=== PATIENT | male | born 1940 | race Caucasian/White ===

== ENCOUNTER 2022-01-26 14:02 | Emergency (ER) | payer MEDICARE, MEDICAID ==
[~2022-01-26] VITALS: Ht 167.6 cm; Wt 81.8 kg
[2022-01-26 15:19] LABS: BASOPHILS % (AUTO) 0.3 % (0.0-2.0); EOSINOPHILS % (AUTO) 2.6 % (1.0-6.0); HEMATOCRIT 30.8 % (41-53); HEMOGLOBIN 10.4 g/dL (13.5-17.5); LYMPHOCYTES # (AUTO) 1.3 K/uL (1.0-4.8); MEAN CORPUSCULAR HEMOGLOBIN 32.1 pg (26.0-34.0); MEAN CORPUSCULAR HGB CONC 33.8 G/dL (31.0-37.0); MEAN CORPUSCULAR VOLUME 95 fL (80-100); MONOCYTES # (AUTO) 0.4 K/uL (0.1-1.0); MONOCYTES % (AUTO) 7.8 % (2.0-9.0); NEUTROPHILS % (AUTO) 62.3 % (40.0-70.0); PLATELET COUNT (AUTO) 122 K/uL (150-450); RED BLOOD CELL COUNT(AUTO) 3.25 MIL/uL (4.50-5.90); RED CELL DISTRIBUTION WIDTH 14.9 % (11.5-14.5)
[2022-01-26 15:27] LABS: CREATININE 1.28 mg/dL (0.60-1.30); MAGNESIUM 1.6 mg/dL (1.80-2.40); POTASSIUM 4.9 mmol/L (3.5-5.1)
[2022-01-26 16:55] VITALS: BP 149/70
== END 2022-01-26 17:25 | disposition home or self-care (01) ==
LOC: EMS 14:06
DX: R42 Dizziness and giddiness (principal); E11.65 Type 2 diabetes mellitus with hyperglycemia; I10 Essential (primary) hypertension; Z96.89 Presence of other specified functional implants
CPT/HCPCS: 71045; 80048; 83735; 84484; 85025; 93005; 99283; 36415-L1; 36415-TC

== ENCOUNTER → 2022-10-11 | Outpatient (CLI) | payer MEDICARE, MEDICAID ==
[~2022-10-11] VITALS: Ht 165.1 cm; Wt 59.5 kg
[~2022-10-11] MED LIST: ACET-2247 PO; APIX2.5T PO; ASPI-1450 PO; BENA40TA92 PO; CHOL200059 PO; DOCU-385 PO; LEVE500T20 PO; METF-81 PO; METO25 PO; MIRT-149 PO; POLY15DR16 OU; SIMV-260 PO; TAMS-13 PO; UBID100C63 PO
[2022-10-11 14:37] VITALS: BP 130/56; PULSE 60; RESP 15; TEMP 98.6; O2SAT 96
== END | disposition home or self-care (01) ==
LOC: SRCNTR 14:00
PROVIDERS: ATTEND Internal Medicine
DX: R55 Syncope and collapse (principal); I10 Essential (primary) hypertension; E11.9 Type 2 diabetes mellitus without complications; D64.9 Anemia, unspecified; N40.0 Benign prostatic hyperplasia without lower urinary tract symptoms; G40.909 Epilepsy, unspecified, not intractable, without status epilepticus
CPT/HCPCS: 93005; G0463

== ENCOUNTER → 2022-11-15 | Outpatient (CLI) | payer MEDICARE, MEDICAID ==
[~2022-11-15] VITALS: Ht 165.1 cm; Wt 60.8 kg
[2022-11-15 14:11] VITALS: BP 109/52; PULSE 55; RESP 18; TEMP 98.5; O2SAT 96
== END | disposition home or self-care (01) ==
LOC: SRCNTR 13:45
PROVIDERS: ATTEND Internal Medicine
DX: Z95.0 Presence of cardiac pacemaker (principal)
CPT/HCPCS: G0463; Z7500

== ENCOUNTER → 2022-12-28 | Outpatient (CLI) | payer MEDICARE, MEDICAID ==
[~2022-12-28] MED LIST changes: -TAMS-13 PO; +TAMS0.4C34 PO
== END | disposition home or self-care (01) ==
LOC: RADPV 12:08
PROVIDERS: ATTEND Internal Medicine
DX: I08.2 Rheumatic disorders of both aortic and tricuspid valves (principal); I49.5 Sick sinus syndrome
CPT/HCPCS: 93306

== ENCOUNTER → 2023-02-14 | Outpatient (CLI) | payer MEDICARE, MEDICAID ==
[~2023-02-14] MED LIST changes: -TAMS0.4C34 PO; +TAMS0.4C94 PO
== END | disposition home or self-care (01) ==
LOC: SRCNTR 14:01
PROVIDERS: ATTEND Internal Medicine
DX: F03.90 Unspecified dementia, unspecified severity, without behavioral disturbance, psychotic disturbance, mood disturbance, and anxiety (principal); I10 Essential (primary) hypertension; E11.9 Type 2 diabetes mellitus without complications; G40.909 Epilepsy, unspecified, not intractable, without status epilepticus; R55 Syncope and collapse
CPT/HCPCS: Q3014

== ENCOUNTER → 2023-07-11 | Outpatient (CLI) | payer MEDICARE, MEDICAID ==
[~2023-07-11] MED LIST changes: -BENA40TA92 PO; -CHOL200059 PO; +GABA-1181 PO; +LATA2.5D14 OU; +METF-1211 PO; -METF-81 PO; +MIRT-92 PO; -POLY15DR16 OU; +SIMV-46 PO; -UBID100C63 PO
[2023-07-11 15:25] VITALS: BP 113/65; PULSE 60; RESP 17; TEMP 98.6; O2SAT 99
== END | disposition home or self-care (01) ==
LOC: SRCNTR 14:24
PROVIDERS: ATTEND Internal Medicine
DX: Z45.010 Encounter for checking and testing of cardiac pacemaker pulse generator [battery] (principal)
CPT/HCPCS: G0463

== ENCOUNTER 2023-08-11 15:08 | Inpatient (IN) | payer MEDICARE, MEDICAID ==
[~2023-08-11] VITALS: Ht 147.3 cm; Wt 59.6 kg
[~2023-08-11 15:08] MED LIST changes: +BISA10SU11 PR; +DIVA-112 PO; +MELA5TAB40 PO; -MIRT-149 PO; +PANT-31 PO; +QUET25TA PO; -SIMV-260 PO; +ZOLP-280 PO; +[UNRECOGNIZED DRUG - CODE] TP
[2023-08-11 16:05] LABS: BASOPHILS % (AUTO) 0.4 % (0.0-2.0); EOSINOPHILS % (AUTO) 9.7 % (1.0-6.0); HEMOGLOBIN 12.7 g/dL (13.5-17.5); LYMPHOCYTES # (AUTO) 1.1 K/uL (1.0-4.8); LYMPHOCYTES % (AUTO) 18.1 % (22.0-44.0); MEAN CORPUSCULAR HEMOGLOBIN 31.5 pg (26.0-34.0); MEAN CORPUSCULAR HGB CONC 33.5 G/dL (31.0-37.0); MEAN CORPUSCULAR VOLUME 94 fL (80-100); MONOCYTES # (AUTO) 0.3 K/uL (0.1-1.0); MONOCYTES % (AUTO) 5.2 % (2.0-9.0); NEUTROPHILS # (AUTO) 3.9 K/uL (1.8-7.7); NEUTROPHILS % (AUTO) 66.6 % (40.0-70.0); PLATELET COUNT (AUTO) 95 K/uL (150-450); RED BLOOD CELL COUNT(AUTO) 4.04 MIL/uL (4.50-5.90); RED CELL DISTRIBUTION WIDTH 14.2 % (11.5-14.5); WHITE BLOOD COUNT (AUTO) 5.9 K/uL (4.5-11.0)
[2023-08-11 16:12] LABS: ANION GAP 4 mmol/L (8-16); CALCIUM, TOTAL 8.6 mg/dL (8.8-10.5); CARBON DIOXIDE 34 mmol/L (22-29); CHLORIDE 105 mmol/L (98-107); CREATININE 1.61 mg/dL (0.60-1.30); GLOMERULAR FILTR. RATE CALC 41 mL/min (>60); GLUCOSE,RANDOM 186 mg/dL (70-110); SODIUM SERUM 142 mmol/L (136-145); UREA NITROGEN, BLOOD 30 mg/dL (7-18)
[2023-08-11 16:14] LABS: ALANINE AMINOTRANSFERASE 35 U/L (12-78); ALBUMIN 2.6 g/dL (3.4-5.0); ALKALINE PHOSPHATASE 99 U/L (46-116); ASPARTATE AMINOTRANSFERASE 35 U/L (15-37); BILIRUBIN,TOTAL 0.3 mg/dL (0.1-1.0); TOTAL PROTEIN, SERUM 6.8 g/dL (6.4-8.2)
[2023-08-11 16:32] LABS: ALCOHOL, BLOOD (SERUM) < 3 mg/dL (0-10)
[2023-08-11] MEDS: CefTRIAXone SODIUM 1 GM/VIAL IM ONE (17:33)
[2023-08-11] MEDS: AZITHROMYCIN 500 MG TABLET PO ONE (17:34)
[2023-08-11] MEDS: LIDOCAINE/PF 1% 2 ML VIAL IM ONE (17:34)
[2023-08-11 18:25] LABS: COVID AG,FIA SOURCE NASAL SWAB
[2023-08-11 19:01] LABS: SARS-COV2 (COVID) ANTIGEN,FIA Negative (Negative)
[2023-08-11] MEDS: LORazepam 1 MG TABLET PO PRN (19:47)
[2023-08-11] MEDS: DIVALPROEX SODIUM 500 MG ER TABLET PO SCH (21:26)
[2023-08-11] MEDS: GABAPENTIN 400 MG CAPSULE PO SCH (21:26)
[2023-08-11] MEDS: OLANZapine 5 MG TABLET PO SCH (21:27)
[2023-08-11 22:38] LABS: ALCOHOL, URINE DRUG SCREEN NEGATIVE (NEGATIVE); AMPHET/METH SCREEN,URINE NEGATIVE (NEGATIVE); BARBITURATE SCREEN, URINE NEGATIVE (NEGATIVE); BENZODIAZEPINES SCREEN,URINE NEGATIVE (NEGATIVE); CANNABINOID SCREEN,URINE NEGATIVE (NEGATIVE); COCAINE SCREEN,URINE NEGATIVE (NEGATIVE); METHADONE SCREEN, URINE NEGATIVE (NEGATIVE); OPIATE SCREEN,URINE NEGATIVE (NEGATIVE); PHENCYCLIDINE SCREEN,URINE NEGATIVE (NEGATIVE)
[2023-08-11 22:40] LABS: APPEARANCE,URINE HAZY (CLEAR); BILIRUBIN,URINE NEGATIVE (NEGATIVE); COLOR,URINE YELLOW (YELLOW); GLUCOSE, URINE (UA) NEGATIVE (NEGATIVE); KETONES,URINE TRACE mg/dL (NEGATIVE); LEUKOCYTE ESTERASE ,URINE SMALL (NEGATIVE); NITRATE,URINE NEGATIVE (NEGATIVE); OCCULT BLOOD,URINE LARGE (NEGATIVE); PH,URINE 7.5 (5.0-8.0); PH,URINE DRUG SCREEN 7.5 (5.0-8.0); PROTEIN,URINE >600,SEE CONFIRM mg/dL (NEGATIVE); SPECIFIC GRAVITIY, URINE 1.022 (1.003-1.030)
[2023-08-11 22:44] LABS: RBC,URINE 51-100 /HPF (0-2); SULFOSALICYLIC ACID,URINE 4+ (Negative)
[2023-08-11 22:45] LABS: BACTERIA,URINE Many /HPF (None Seen)
[2023-08-12] MEDS: ChlorproMAZINE HCL 100 MG TABLET PO PRN (19:36)
[2023-08-12] MEDS: LevETIRAcetam 500 MG TABLET PO ONE (21:00)
[2023-08-12] MEDS: METOPROLOL TARTRATE 25 MG TABLET PO ONE (21:00)
[2023-08-12] MEDS: LORazepam 2 MG/ML VIAL IM ONE (21:03)
[2023-08-12] MEDS: HALOPERIDOL LACTATE 5 MG/ML VIAL IM ONE (21:04)
[2023-08-13] MEDS: DIVALPROEX SODIUM 500 MG ER TABLET PO ONE (08:42)
[2023-08-14 14:33] LABS: BASOPHILS % (AUTO) 0.5 % (0.0-2.0); EOSINOPHILS % (AUTO) 1.3 % (1.0-6.0); HEMOGLOBIN 16.2 g/dL (13.5-17.5); LYMPHOCYTES # (AUTO) 1.4 K/uL (1.0-4.8); LYMPHOCYTES % (AUTO) 15.8 % (22.0-44.0); MEAN CORPUSCULAR HEMOGLOBIN 31.5 pg (26.0-34.0); MEAN CORPUSCULAR HGB CONC 33.8 G/dL (31.0-37.0); MEAN CORPUSCULAR VOLUME 93 fL (80-100); MONOCYTES # (AUTO) 0.7 K/uL (0.1-1.0); MONOCYTES % (AUTO) 7.8 % (2.0-9.0); NEUTROPHILS # (AUTO) 6.7 K/uL (1.8-7.7); NEUTROPHILS % (AUTO) 74.6 % (40.0-70.0); PLATELET COUNT (AUTO) 133 K/uL (150-450); RED BLOOD CELL COUNT(AUTO) 5.15 MIL/uL (4.50-5.90); RED CELL DISTRIBUTION WIDTH 14.7 % (11.5-14.5)
[2023-08-14 14:42] LABS: ANION GAP 8 mmol/L (8-16); CALCIUM, TOTAL 8.9 mg/dL (8.8-10.5); CARBON DIOXIDE 32 mmol/L (22-29); CHLORIDE 103 mmol/L (98-107); GLOMERULAR FILTR. RATE CALC 24 mL/min (>60); GLUCOSE,RANDOM 140 mg/dL (70-110); POTASSIUM 4.3 mmol/L (3.5-5.1); SODIUM SERUM 143 mmol/L (136-145); UREA NITROGEN, BLOOD 35 mg/dL (7-18)
[2023-08-14 14:49] LABS: ALANINE AMINOTRANSFERASE 51 U/L (12-78); ALBUMIN 2.8 g/dL (3.4-5.0); ALKALINE PHOSPHATASE 117 U/L (46-116); ASPARTATE AMINOTRANSFERASE 136 U/L (15-37); BILIRUBIN,TOTAL 0.4 mg/dL (0.1-1.0); TOTAL PROTEIN, SERUM 8.1 g/dL (6.4-8.2)
[2023-08-14 14:53] LABS: LACTIC ACID 2.7 mmol/L (0.4-2.0); TROPONIN I-HIGH SENSITIVITY 1569 ng/L (<76)
[2023-08-14] MEDS: SODIUM CHLORIDE 0.9% 1,000 ML IV ONE (14:56)
[2023-08-14 15:01] LABS: AMMONIA < 10 umol/L (11-32)
[2023-08-14 15:41] LABS: APPEARANCE,URINE CLEAR (CLEAR); BILIRUBIN,URINE NEGATIVE (NEGATIVE); COLOR,URINE YELLOW (YELLOW); GLUCOSE, URINE (UA) TRACE mg/dL (NEGATIVE); LEUKOCYTE ESTERASE ,URINE NEGATIVE (NEGATIVE); NITRATE,URINE NEGATIVE (NEGATIVE); OCCULT BLOOD,URINE MODERATE (NEGATIVE); PH,URINE 7.5 (5.0-8.0); PROTEIN,URINE >600,SEE CONFIRM mg/dL (NEGATIVE); SPECIFIC GRAVITIY, URINE 1.021 (1.003-1.030); UROBILINOGEN,URINE <=1.0 mg/dL (<=1.0)
[2023-08-14 15:42] LABS: PROTHROMBIN TIME 10.9 SEC (9.4-11.6)
[2023-08-14] MEDS: CefTRIAXone 1 GM/DEXTROSE 50 ML IV ONE (15:57)
[2023-08-14 16:16] LABS: BACTERIA,URINE None Seen /HPF (None Seen); SULFOSALICYLIC ACID,URINE 4+ (Negative)
[2023-08-14 20:40] LABS: GLUCOMETER DEV NAME(LOC) ER.7; GLUCOSE,POINT OF CARE 127 MG/DL (70-110)
[2023-08-14 22:50] VITALS: BP 143/64; PULSE 94; RESP 20; TEMP 98.8
[2023-08-15 03:59] VITALS: BP 156/62; PULSE 109; RESP 20; TEMP 98
[2023-08-15 08:00] LABS: CALCIUM, TOTAL 8.2 mg/dL (8.8-10.5); CREATININE 1.97 mg/dL (0.60-1.30); POTASSIUM 4.2 mmol/L (3.5-5.1)
[2023-08-15 08:12] LABS: TROPONIN I-HIGH SENSITIVITY 1241 ng/L (<76)
[2023-08-15 08:23] LABS: BASOPHILS % (AUTO) 1.3 % (0.0-2.0); EOSINOPHILS % (AUTO) 3.7 % (1.0-6.0); HEMATOCRIT 41.8 % (41-53); HEMOGLOBIN 14.2 g/dL (13.5-17.5); LYMPHOCYTES % (AUTO) 10.3 % (22.0-44.0); MEAN CORPUSCULAR HEMOGLOBIN 31.8 pg (26.0-34.0); MEAN CORPUSCULAR HGB CONC 33.9 G/dL (31.0-37.0); MEAN CORPUSCULAR VOLUME 94 fL (80-100); MONOCYTES # (AUTO) 0.7 K/uL (0.1-1.0); MONOCYTES % (AUTO) 7.5 % (2.0-9.0); NEUTROPHILS # (AUTO) 7.7 K/uL (1.8-7.7); NEUTROPHILS % (AUTO) 77.2 % (40.0-70.0); PLATELET COUNT (AUTO) 113 K/uL (150-450); RED BLOOD CELL COUNT(AUTO) 4.46 MIL/uL (4.50-5.90); RED CELL DISTRIBUTION WIDTH 14.3 % (11.5-14.5); WHITE BLOOD COUNT (AUTO) 9.9 K/uL (4.5-11.0)
[2023-08-15 08:33] VITALS: BP 113/71; PULSE 88; RESP 20; TEMP 98.4
[2023-08-15] MEDS ORDERED: LORazepam 0.5 MG TABLET PO PRN (11:15)
[2023-08-15] MEDS ORDERED: BREXPIPRAZOLE 0.25 MG TABLET PO PRN (11:15)
[2023-08-15 11:41] LABS: GLUCOMETER DEV NAME(LOC) 5S.2C; GLUCOSE,POINT OF CARE 131 MG/DL (70-110)
[2023-08-15 15:43] VITALS: BP 136/84; PULSE 87; RESP 18; TEMP 98
[2023-08-15] MEDS ORDERED: SODIUM CHLORIDE 0.9% 1,000 ML ONE (16:53)
[2023-08-15 19:37] VITALS: BP 123/61; PULSE 88; RESP 19; TEMP 97.8
[2023-08-15] MEDS: BREXPIPRAZOLE 0.25 MG TABLET PO SCH (21:00)
[2023-08-15] MEDS ORDERED: BISACODYL 10 MG RECTAL RECTAL SUPPOSITORY PR PRN ×2 (21:45)
[2023-08-15] MEDS ORDERED: CAMPHOR/MENTHOL/PHENOL 10 GM OINTMENT TP PRN (21:45)
[2023-08-15] MEDS ORDERED: ALBUTEROL SULFATE 2.5 MG/0.5 ML NEB SOLUTION NEB PRN (21:45)
[2023-08-15] MEDS ORDERED: ZOLPIDEM TARTRATE 5 MG TABLET PO PRN ×2 (21:45)
[2023-08-15] MEDS ORDERED: ACETAMINOPHEN 325 MG TABLET PO PRN (21:45)
[2023-08-15] MEDS ORDERED: HYDROCODONE/ACETAMINOPHEN 5-325 MG TABLET PO PRN (21:45)
[2023-08-15] MEDS ORDERED: MAGNESIUM HYDROXIDE SUSPENSION 30 ML UDCUP PO PRN (21:45)
[2023-08-15] MEDS ORDERED: IPRATROPIUM BROMIDE 0.5 MG/2.5 ML NEB SOLUTION NEB PRN (21:45)
[2023-08-15] MEDS ORDERED: MORPHINE SULFATE 2 MG/ML SYRINGE IVP PRN (21:45)
[2023-08-15] MEDS: SIMVASTATIN 40 MG TABLET PO SCH (22:00)
[2023-08-15] MEDS: LevETIRAcetam 1,000 MG in DEXTROSE 5%-WATER 100 ML IV SCH (22:14)
[2023-08-15] MEDS: CefTRIAXone SODIUM 250 MG in DEXTROSE 5%-WATER 50 ML IV SCH (22:41)
[2023-08-15] MEDS: SODIUM CHLORIDE 0.45% 1,000 ML IV SCH (22:42)
[2023-08-15 23:37] VITALS: BP 111/79; PULSE 66; RESP 19; TEMP 97.8
[2023-08-16] VITALS (7 sets, daily range): BP systolic 111–144; BP diastolic 55–79; PULSE 60–69; RESP 18–19; TEMP 96.3–98.2
[2023-08-16] MEDS ORDERED: DEXTROSE 50%-WATER 25 GM/50 ML SYRINGE IVP PRN (05:30)
[2023-08-16 06:20] LABS: GLUCOMETER DEV NAME(LOC) 5N.2C; GLUCOSE,POINT OF CARE 96 MG/DL (70-110)
[2023-08-16] MEDS ORDERED: DOCUSATE SODIUM 100 MG CAPSULE PO SCH (09:00)
[2023-08-16] MEDS ORDERED: PANTOPRAZOLE SODIUM 40 MG DR TABLET PO SCH (09:00)
[2023-08-16] MEDS: PANTOPRAZOLE SODIUM 40 MG/VIAL IVP SCH (10:36)
[2023-08-16] MEDS: GABAPENTIN 300 MG CAPSULE PO SCH (10:37)
[2023-08-16] MEDS: TAMSULOSIN HCL 0.4 MG CAPSULE PO SCH (10:37)
[2023-08-16] MEDS: METOPROLOL TARTRATE 25 MG TABLET PO SCH (10:37)
[2023-08-16] MEDS: ASPIRIN 81 MG CHEWABLE TABLET PO SCH (10:37)
[2023-08-16] MEDS: APIXABAN 2.5 MG TABLET PO SCH (10:38)
[2023-08-16] MEDS: DOCUSATE SODIUM 100 MG CAPSULE PO SCH (10:38)
[2023-08-16 12:01] LABS: BASOPHILS % (AUTO) 0.8 % (0.0-2.0); EOSINOPHILS % (AUTO) 6.8 % (1.0-6.0); HEMATOCRIT 39.7 % (41-53); HEMOGLOBIN 13.3 g/dL (13.5-17.5); LYMPHOCYTES # (AUTO) 1.3 K/uL (1.0-4.8); LYMPHOCYTES % (AUTO) 14.8 % (22.0-44.0); MEAN CORPUSCULAR HEMOGLOBIN 31.8 pg (26.0-34.0); MEAN CORPUSCULAR HGB CONC 33.5 G/dL (31.0-37.0); MEAN CORPUSCULAR VOLUME 95 fL (80-100); MONOCYTES # (AUTO) 1.3 K/uL (0.1-1.0); NEUTROPHILS # (AUTO) 5.4 K/uL (1.8-7.7); NEUTROPHILS % (AUTO) 62.6 % (40.0-70.0); PLATELET COUNT (AUTO) 100 K/uL (150-450); RED BLOOD CELL COUNT(AUTO) 4.17 MIL/uL (4.50-5.90); RED CELL DISTRIBUTION WIDTH 14.4 % (11.5-14.5); WHITE BLOOD COUNT (AUTO) 8.6 K/uL (4.5-11.0)
[2023-08-16 12:05] LABS: ALBUMIN 2.1 g/dL (3.4-5.0); BILIRUBIN,TOTAL 0.3 mg/dL (0.1-1.0); CALCIUM, TOTAL 8.1 mg/dL (8.8-10.5); CREATININE 1.35 mg/dL (0.60-1.30); POTASSIUM 4.2 mmol/L (3.5-5.1); TOTAL PROTEIN, SERUM 6.7 g/dL (6.4-8.2)
[2023-08-16] MEDS: PERMETHRIN 5% 60 GM CREAM TP ONE (14:10)
[2023-08-16] MEDS: LATANOPROST 0.005% 2.5 ML OPHTHALMIC SOLUTION OU SCH (21:38)
[2023-08-16] MEDS: MIRTAZAPINE 15 MG TABLET PO SCH (21:39)
[2023-08-16] MEDS: MELATONIN 5 MG TABLET PO SCH (21:39)
[2023-08-16] MEDS: CefTRIAXone 1 GM/DEXTROSE 50 ML IV SCH (21:47)
[2023-08-16] MEDS: INSULIN LISPRO 100 UNITS/ML SQ PRN (21:58)
[2023-08-17 03:40] VITALS: BP 140/73; PULSE 62; RESP 18; TEMP 96.8
[2023-08-17 06:21] LABS: GLUCOMETER DEV NAME(LOC) 5N.2C; GLUCOSE,POINT OF CARE 155 MG/DL (70-110)
[2023-08-17 06:21] LABS: GLUCOMETER DEV NAME(LOC) 5N.2C; GLUCOSE,POINT OF CARE 164 MG/DL (70-110)
[2023-08-17 06:31] LABS: GLUCOMETER DEV NAME(LOC) 5S.2D; GLUCOSE,POINT OF CARE 124 MG/DL (70-110)
[2023-08-17 06:31] LABS: GLUCOMETER DEV NAME(LOC) 5S.2D; GLUCOSE,POINT OF CARE 161 MG/DL (70-110)
[2023-08-17 07:28] VITALS: BP 141/72; PULSE 62; RESP 16; TEMP 98
[2023-08-17 11:52] VITALS: BP 140/69; PULSE 60; RESP 16; TEMP 97.2
[2023-08-17 15:15] VITALS: BP 124/68; PULSE 60; RESP 16; TEMP 97.4
[2023-08-17] MEDS: IVERMECTIN 3 MG TABLET PO SCH (18:00)
[2023-08-17 20:43] VITALS: BP 143/55; PULSE 61; RESP 19; TEMP 97.9
[2023-08-17] MEDS: PERMETHRIN 5% 60 GM CREAM TP SCH (20:52)
[2023-08-17 22:25] LABS: GLUCOMETER DEV NAME(LOC) 5S.2D; GLUCOSE,POINT OF CARE 113 MG/DL (70-110)
[2023-08-18] VITALS (7 sets, daily range): BP systolic 100–160; BP diastolic 47–88; PULSE 60–85; RESP 16–19; TEMP 97.2–98
[2023-08-18 07:36] LABS: GLUCOMETER DEV NAME(LOC) 5S.2D; GLUCOSE,POINT OF CARE 122 MG/DL (70-110)
[2023-08-18 19:21] LABS: GLUCOMETER DEV NAME(LOC) 5S.1B; GLUCOSE,POINT OF CARE 71 MG/DL (70-110)
[2023-08-19 02:06] LABS: GLUCOMETER DEV NAME(LOC) 5S.2D; GLUCOSE,POINT OF CARE 134 MG/DL (70-110)
[2023-08-19 02:06] LABS: GLUCOMETER DEV NAME(LOC) 5S.2D; GLUCOSE,POINT OF CARE 163 MG/DL (70-110)
[2023-08-19 05:26] VITALS: BP 132/76; PULSE 68; RESP 19; TEMP 97.9
[2023-08-19 08:01] VITALS: BP 138/58; PULSE 60; RESP 18; TEMP 97.5
[2023-08-19 08:10] LABS: GLUCOMETER DEV NAME(LOC) 5S.1B; GLUCOSE,POINT OF CARE 87 MG/DL (70-110)
[2023-08-19 08:15] LABS: GLUCOMETER DEV NAME(LOC) 5S.2D; GLUCOSE,POINT OF CARE 82 MG/DL (70-110)
[2023-08-19 12:01] VITALS: BP 130/66; PULSE 62; RESP 17; TEMP 97.1
[2023-08-19 15:45] VITALS: BP 119/66; PULSE 63; RESP 18; TEMP 97.6
[2023-08-19 17:04] VITALS: BP 123/61; PULSE 62; RESP 18; TEMP 98
[2023-08-19 17:30] LABS: GLUCOMETER DEV NAME(LOC) 5S.1B; GLUCOSE,POINT OF CARE 123 MG/DL (70-110)
[2023-08-19 20:34] VITALS: BP 149/97; PULSE 84; RESP 20; TEMP 96.9
[2023-08-19 20:41] LABS: GLUCOMETER DEV NAME(LOC) 5S.2D; GLUCOSE,POINT OF CARE 121 MG/DL (70-110)
[2023-08-20] VITALS (7 sets, daily range): BP systolic 105–160; BP diastolic 56–97; PULSE 59–72; RESP 18; TEMP 96.5–98
[2023-08-20 01:21] LABS: GLUCOMETER DEV NAME(LOC) 5S.2D; GLUCOSE,POINT OF CARE 130 MG/DL (70-110)
[2023-08-20 06:40] LABS: GLUCOMETER DEV NAME(LOC) 5S.2D; GLUCOSE,POINT OF CARE 92 MG/DL (70-110)
[2023-08-20 11:35] LABS: GLUCOMETER DEV NAME(LOC) 5N.1D; GLUCOSE,POINT OF CARE 83 MG/DL (70-110)
[2023-08-20 17:01] LABS: GLUCOMETER DEV NAME(LOC) 5N.1D; GLUCOSE,POINT OF CARE 131 MG/DL (70-110)
[2023-08-20 18:16] LABS: GLUCOMETER DEV NAME(LOC) 5N.1D; GLUCOSE,POINT OF CARE 112 MG/DL (70-110)
[2023-08-20] MEDS: CefTRIAXone 1 GM/DEXTROSE 50 ML IV SCH (21:29)
[2023-08-20 21:36] LABS: GLUCOMETER DEV NAME(LOC) 5S.1B; GLUCOSE,POINT OF CARE 122 MG/DL (70-110)
[2023-08-21 03:18] VITALS: BP 134/77; PULSE 60; RESP 18; TEMP 96.2
[2023-08-21 06:41] LABS: GLUCOMETER DEV NAME(LOC) 5S.1B; GLUCOSE,POINT OF CARE 89 MG/DL (70-110)
[2023-08-21 08:25] VITALS: BP 113/72; PULSE 69; RESP 18; TEMP 97.4
[2023-08-21 11:10] VITALS: BP 125/73; PULSE 63; RESP 18; TEMP 96.5
[2023-08-21 14:35] LABS: GLUCOMETER DEV NAME(LOC) 5N.2C; GLUCOSE,POINT OF CARE 87 MG/DL (70-110)
[2023-08-21 16:14] VITALS: BP 112/62; PULSE 62; RESP 18; TEMP 96.3
[2023-08-21 16:35] LABS: BASOPHILS % (AUTO) 0.3 % (0.0-2.0); EOSINOPHILS % (AUTO) 13.2 % (1.0-6.0); HEMOGLOBIN 12.3 g/dL (13.5-17.5); LYMPHOCYTES # (AUTO) 0.8 K/uL (1.0-4.8); LYMPHOCYTES % (AUTO) 19.5 % (22.0-44.0); MEAN CORPUSCULAR HEMOGLOBIN 30.9 pg (26.0-34.0); MEAN CORPUSCULAR HGB CONC 33.4 G/dL (31.0-37.0); MEAN CORPUSCULAR VOLUME 93 fL (80-100); MONOCYTES # (AUTO) 0.2 K/uL (0.1-1.0); MONOCYTES % (AUTO) 5.1 % (2.0-9.0); NEUTROPHILS # (AUTO) 2.6 K/uL (1.8-7.7); NEUTROPHILS % (AUTO) 61.9 % (40.0-70.0); PLATELET COUNT (AUTO) 115 K/uL (150-450); RED BLOOD CELL COUNT(AUTO) 3.99 MIL/uL (4.50-5.90); RED CELL DISTRIBUTION WIDTH 14.1 % (11.5-14.5); WHITE BLOOD COUNT (AUTO) 4.1 K/uL (4.5-11.0)
[2023-08-21 16:43] LABS: CALCIUM, TOTAL 8.1 mg/dL (8.8-10.5); CREATININE 1.17 mg/dL (0.60-1.30); POTASSIUM 4.1 mmol/L (3.5-5.1)
[2023-08-21 18:11] LABS: GLUCOMETER DEV NAME(LOC) 5N.1D; GLUCOSE,POINT OF CARE 117 MG/DL (70-110)
[2023-08-21 19:24] LABS: APPEARANCE,URINE CLEAR (CLEAR); BILIRUBIN,URINE NEGATIVE (NEGATIVE); COLOR,URINE LIGHT YELLOW (YELLOW); GLUCOSE, URINE (UA) TRACE mg/dL (NEGATIVE); LEUKOCYTE ESTERASE ,URINE TRACE (NEGATIVE); NITRATE,URINE NEGATIVE (NEGATIVE); OCCULT BLOOD,URINE MODERATE (NEGATIVE); PROTEIN,URINE 300-600,SEE CONFIRM mg/dL (NEGATIVE); SPECIFIC GRAVITIY, URINE 1.017 (1.003-1.030); UROBILINOGEN,URINE <=1.0 mg/dL (<=1.0)
[2023-08-21 19:40] LABS: BACTERIA,URINE Few /HPF (None Seen); SQUAMOUS EPITHELIAL CELL,UR Rare /LPF (None Seen)
[2023-08-21 19:41] LABS: SULFOSALICYLIC ACID,URINE 3+ (Negative)
[2023-08-21 20:06] VITALS: BP 120/55; PULSE 101; RESP 16; TEMP 97.6
[2023-08-22 00:03] VITALS: BP 94/59; PULSE 59; RESP 16; TEMP 97.3
[2023-08-22 02:17] LABS: GLUCOMETER DEV NAME(LOC) 5N.2C; GLUCOSE,POINT OF CARE 131 MG/DL (70-110)
[2023-08-22 05:57] VITALS: BP 129/60; PULSE 60; RESP 16; TEMP 96.7
[2023-08-22 06:44] LABS: HEMATOCRIT 37.7 % (41-53); HEMOGLOBIN 12.8 g/dL (13.5-17.5); MEAN CORPUSCULAR HEMOGLOBIN 31.3 pg (26.0-34.0); MEAN CORPUSCULAR HGB CONC 33.9 G/dL (31.0-37.0); MEAN CORPUSCULAR VOLUME 92 fL (80-100); PLATELET COUNT (AUTO) 120 K/uL (150-450); RED BLOOD CELL COUNT(AUTO) 4.09 MIL/uL (4.50-5.90); RED CELL DISTRIBUTION WIDTH 13.9 % (11.5-14.5); WHITE BLOOD COUNT (AUTO) 4.5 K/uL (4.5-11.0)
[2023-08-22 07:35] LABS: CALCIUM, TOTAL 8.4 mg/dL (8.8-10.5); CREATININE 1.21 mg/dL (0.60-1.30); POTASSIUM 4.2 mmol/L (3.5-5.1)
[2023-08-22 07:43] VITALS: BP 143/57; PULSE 63; RESP 18; TEMP 97.4
[2023-08-22 09:37] LABS: BAND NEUTROPHILS % (MANUAL) 0 % (0-5); EOSINOPHILS % (MANUAL) 8 % (1-6); LYMPHOCYTES % (MANUAL) 42 % (22-44); MONOCYTES % (MANUAL) 4 % (2-9); SEGMENTED NEUTROPHILS % 46 % (40-70); TOTAL CELLS COUNTED 100
[2023-08-22 11:23] VITALS: BP 140/54; PULSE 20; RESP 18; TEMP 97.3
[2023-08-22 11:50] LABS: GLUCOMETER DEV NAME(LOC) 5S.1B; GLUCOSE,POINT OF CARE 82 MG/DL (70-110)
[2023-08-22 11:50] LABS: GLUCOMETER DEV NAME(LOC) 5S.1B; GLUCOSE,POINT OF CARE 121 MG/DL (70-110)
[2023-08-22 16:35] VITALS: BP 97/60; PULSE 60; RESP 18; TEMP 97.7
[2023-08-22 17:55] LABS: GLUCOMETER DEV NAME(LOC) 5N.1D; GLUCOSE,POINT OF CARE 110 MG/DL (70-110)
[2023-08-22 20:45] VITALS: BP 130/63; PULSE 62; RESP 17; TEMP 97.6
[2023-08-22] MEDS: LevETIRAcetam 500 MG TABLET PO SCH (21:49)
[2023-08-23 00:37] VITALS: BP 115/52; PULSE 62; RESP 20; TEMP 97.6
[2023-08-23 05:00] VITALS: BP 150/64; PULSE 61; RESP 19; TEMP 97.7
[2023-08-23 07:15] VITALS: BP 153/93; PULSE 61; RESP 18; TEMP 97.6
[2023-08-23 07:41] LABS: GLUCOMETER DEV NAME(LOC) 5S.2D; GLUCOSE,POINT OF CARE 99 MG/DL (70-110)
[2023-08-23 07:41] LABS: GLUCOMETER DEV NAME(LOC) 5S.2D; GLUCOSE,POINT OF CARE 148 MG/DL (70-110)
[2023-08-23 07:41] LABS: GLUCOMETER DEV NAME(LOC) 5S.2D; GLUCOSE,POINT OF CARE 150 MG/DL (70-110)
[2023-08-23 10:52] VITALS: BP 145/74; PULSE 61; RESP 17; TEMP 97.5
[2023-08-23 16:00] VITALS: BP 150/80; PULSE 64; RESP 19; TEMP 97.8
[2023-08-23] MEDS: VALPROIC ACID 250 MG/5 ML SOLUTION UDCUP PO SCH (16:52)
[2023-08-23 17:41] LABS: GLUCOMETER DEV NAME(LOC) 5S.2D; GLUCOSE,POINT OF CARE 97 MG/DL (70-110)
[2023-08-23 18:01] LABS: GLUCOMETER DEV NAME(LOC) 5N.1D; GLUCOSE,POINT OF CARE 88 MG/DL (70-110)
[2023-08-23 20:09] VITALS: BP 130/61; PULSE 60; RESP 18; TEMP 97.5
[2023-08-23] MEDS: DOCUSATE SODIUM 100 MG/10 ML LIQUID UDCUP PO SCH (21:40)
[2023-08-23] MEDS: LevETIRAcetam 100 MG/ML 5 ML SOLUTION UDCUP PO SCH (21:40)
[2023-08-24 00:32] VITALS: BP 118/62; PULSE 63; RESP 18; TEMP 97.6
[2023-08-24 05:32] VITALS: BP 111/72; PULSE 60; RESP 18; TEMP 97.4
[2023-08-24 06:26] LABS: GLUCOMETER DEV NAME(LOC) 5S.2D; GLUCOSE,POINT OF CARE 102 MG/DL (70-110)
[2023-08-24 07:40] VITALS: BP 146/66; PULSE 60; RESP 17; TEMP 97.5
[2023-08-24 11:00] VITALS: BP 149/70; PULSE 61; RESP 16; TEMP 97.6
[2023-08-24 14:16] LABS: GLUCOMETER DEV NAME(LOC) 5N.1D; GLUCOSE,POINT OF CARE 118 MG/DL (70-110)
[2023-08-24 15:33] VITALS: BP 122/66; PULSE 60; RESP 16; TEMP 96.3
== END 2023-08-24 15:50 | DRG 308 ==
LOC: EMS 15:13 → AHU 08-14 16:58 → 5S 08-14 20:33
PROVIDERS: ADMIT Hospitalist; ATTEND Hospitalist
DX: I48.0 Paroxysmal atrial fibrillation (principal); J18.9 Pneumonia, unspecified organism; N39.0 Urinary tract infection, site not specified; G93.49 Other encephalopathy; E87.0 Hyperosmolality and hypernatremia; N17.9 Acute kidney failure, unspecified; F20.9 Schizophrenia, unspecified; R79.89 Other specified abnormal findings of blood chemistry; G40.909 Epilepsy, unspecified, not intractable, without status epilepticus; N18.9 Chronic kidney disease, unspecified; E86.0 Dehydration; Z20.822 Contact with and (suspected) exposure to COVID-19; B86 Scabies; B95.8 Unspecified staphylococcus as the cause of diseases classified elsewhere; I51.9 Heart disease, unspecified; F03.C0 Unspecified dementia, severe, without behavioral disturbance, psychotic disturbance, mood disturbance, and anxiety; D69.6 Thrombocytopenia, unspecified; Z78.1 Physical restraint status; Z95.0 Presence of cardiac pacemaker; Z95.3 Presence of xenogenic heart valve; J98.4 Other disorders of lung; Z79.82 Long term (current) use of aspirin; Z79.899 Other long term (current) drug therapy; E11.22 Type 2 diabetes mellitus with diabetic chronic kidney disease; I12.9 Hypertensive chronic kidney disease with stage 1 through stage 4 chronic kidney disease, or unspecified chronic kidney disease
CPT/HCPCS: 70450; 71045; 80048; 80053; 80164; 80307; 81001; 81002; 81003; 82140; 82962; 83605; 83880; 84484; 85025; 85610; 85730; 87086; 87186; 87481; 92610; 93005; 93306; 99285; C9113; G0480; J0696; J0712; J1630; J2060; J3490; J7030; J7060; Q9967; 36415-L1; 36415-TC